=== PATIENT | male | born 1985 | race Asian ===

== ENCOUNTER 2016-05-22 10:48 | Emergency (ER) | payer OTHER ==
[2016-05-22] MEDS ORDERED: HYDROmorphone 1 MG/ML SYRINGE ONE (11:17)
[2016-05-22] MEDS ORDERED: ONDANSETRON 4 MG/2 ML VIAL ONE (11:17)
[2016-05-22] MEDS ORDERED: ONDANSETRON 4 MG/2 ML VIAL IVP STA (11:18)
[2016-05-22] MEDS ORDERED: HYDROmorphone 1 MG/ML SYRINGE IVP STA (11:18)
[2016-05-22] MEDS ORDERED: IOPAMIDOL-300 100 ML VIAL IVP ONE (11:57)
[2016-05-22] MEDS ORDERED: KETOROLAC 60 MG/2 ML VIAL IVP STA (12:49)
[2016-05-22] MEDS ORDERED: KETOROLAC 30 MG/ML VIAL ONE (12:52)
== END 2016-05-22 14:36 | disposition home or self-care (01) ==
DX: S32.020A Wedge compression fracture of second lumbar vertebra, initial encounter for closed fracture (principal); R07.89 Other chest pain; R10.11 Right upper quadrant pain; W14.XXXA Fall from tree, initial encounter; Y93.H2 Activity, gardening and landscaping; Y92.007 Garden or yard of unspecified non-institutional (private) residence as the place of occurrence of the external cause; Y99.8 Other external cause status
CPT/HCPCS: 36415; 71260; 74177; 80053; 83690; 84484; 85025; 96374; 96375; 99283; 99284; J1170; Q9967